=== PATIENT | female | born 1995 | race Caucasian/White ===

== ENCOUNTER 2016-08-14 23:32 | Observation (INO) | payer OTHER ==
[~2016-08-14] VITALS: Ht 170.2 cm; Wt 63.6 kg
[~2016-08-14 23:32] MED LIST: ACET325T9 PO; ALBU6.7H IH; ALBU8.5H8 INH; BUDE0.5A3 IH; IBUP400T18 PO; LEVO20CA PO; MELO7.5T5 PO; NAPR220T70 PO; OXYC-323 PO; TIZA2CAP3 PO; TRAM50TA PO
[2016-08-14] MEDS ORDERED: IV NORMAL SALINE 1,000ML 1,000 ML IV SCH (23:56)
[2016-08-15] MEDS ORDERED: LORazepam 2 MG/ML VIAL IV ONE
[2016-08-15] MEDS ORDERED: 0.9 % SODIUM CHLORIDE 10 ML DISP.SYRIN. IV PRN
[2016-08-15 00:29] LABS: BASO % 0 % (0-3); EOS # 0.2 x10^3/uL (0.0-0.7); EOS % 3 % (0-3); HEMOGLOBIN 11.1 g/dL (12.0-15.5); LYMPH # 3.6 x10^3/uL (1.0-4.8); LYMPH % 42 % (24-48); MEAN CORPUSCULAR HEMOGLOBIN 26 pg (25-35); MEAN CORPUSCULAR HGB CONC 33 g/dL (31-37); MEAN CORPUSCULAR VOLUME 78 fL (79-100); MONO # 0.8 x10^3/uL (0.0-1.1); MONO % 9 % (0-9); NEUT % 46 % (31-73); PLATELET COUNT 200 x10^3/uL (140-400); RED BLOOD COUNT 4.33 x10^6/uL (3.50-5.40); RED CELL DISTRIBUTION WIDTH 18.3 % (11.5-14.5); WHITE BLOOD COUNT 8.6 x10^3/uL (4.0-11.0)
[2016-08-15 00:38] LABS: ALBUMIN 3.9 g/dL (3.4-5.0); CREATININE 0.7 mg/dL (0.6-1.0); DIRECT BILIRUBIN 0.2 mg/dL (0.0-0.2); GFR 103.7; MAGNESIUM 2.2 mg/dL (1.8-2.4); POTASSIUM 3.2 mmol/L (3.5-5.1); TOTAL BILIRUBIN 0.9 mg/dL (0.2-1.0); TOTAL PROTEIN 7.4 g/dL (6.4-8.2)
[2016-08-15 00:39] LABS: ACETAMIN < 2.0 mcg/mL (10-30); ETHANOL < 10 mg/dL (0-10)
[2016-08-15 00:40] LABS: SALIC < 0.2 mg/dL (2.8-20.0)
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
[2016-08-15 01:00] LABS: PREG TEST PT QUAL NEGATIVE (NEG)
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
[2016-08-15 01:58] LABS: BILIRUBIN,URINE NEG (NEG); CLARITY,URINE HAZY; COLOR,URINE YELLOW; GLUCOSE,URINE NEG (NEG)
[2016-08-15 01:59] LABS: BACTERIA,URINE FEW /HPF (0-FEW); BARBITURATES NEG (NEG); BENZODIAZEPINES NEG (NEG); CANNABINOIDS POS (NEG); COCAINE NEG (NEG); METHADONE NEG (NEG); NITRITE,URINE NEG (NEG); OPIATES NEG (NEG); PHENCYCLIDINE NEG (NEG); RBC,URINE >40 /HPF (0-2); UROBILINOGEN,URINE 0.2 mg/dL (0.2 mg/dL); WBC,URINE OCC /HPF (0-4)
[2016-08-15 02:00] LABS: SQUAMOUS EPITHELIAL CELL,UR FEW /LPF
[2016-08-15 02:01] LABS: AMPHETAMINE/METHAMPHETAMINE POS (NEG)
[2016-08-15] MEDS ORDERED: LORazepam 2 MG/ML VIAL IV PRN (02:30)
[2016-08-15 02:41] VITALS: BP 116/71
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
--- NOTE | 2016-08-15 06:28 | NUR ---
Dr. Mejia paged and returned page. Aware of consult.
--- NOTE | 2016-08-15 06:52 | RAD ---
Indication: Injury with shoulder and chest pain. Time of exam 0116 hours. Comparison is made with prior exam from 01/27/2015. The heart size is normal. The lungs are clear. No infiltrate, effusion or pneumothorax is detected. Impression: No acute cardiopulmonary process is detected.
[2016-08-15] MEDS ORDERED: POTASSIUM CHLORIDE 20 MEQ TABLET.ER. PO ONE (08:00)
[2016-08-15 09:23] VITALS: BP 116/77
[2016-08-15] MEDS: MVI, ADULT NO.4 WITH VIT K 10 ML, FOLIC ACID 1 MG, THIAMINE 100 MG in IV DEXTROSE 5 %-0... IV SCH ×4 (09:28)
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
[2016-08-15 14:56] VITALS: BP 115/70
[2016-08-15] MEDS ORDERED: KETOROLAC 15 MG/ML VIAL. IV PRN (17:15)
--- NOTE | 2016-08-15 18:00 | NUR ---
IV: Banana Bag/Multivitamin IV stopped on 08/15/16 at 1800
--- NOTE | 2016-08-15 18:04 | NUR ---
Nursing: Patient drowsy throughout the morning. Patient was oriented to self only. Patient woke up for lunch and then went back to bed. Approximately 1500 patient woke up and has been watching TV and talking on the phone. Patient's grandparents visited. Patient and visitors were raising voices and patient asked visitors to leave. Patient then explained that her grandma wants to talk about the problems but does not understand. Patient does not want anyone to receive any medical information unless it comes from her. Patient is interested in following up with [facility]. Patient currently alert and oriented. Ate 100% of dinner. Call light within reach. Will continue to monitor.
[2016-08-15 19:26] VITALS: BP 135/77
--- NOTE | 2016-08-15 22:46 | NUR ---
Patient assessed, continue to monitor.
[2016-08-16 06:08] VITALS: BP 128/77
[2016-08-16] MEDS ORDERED: POTASSIUM CHLORIDE 20 MEQ TABLET.ER. PO ONE (07:45)
[2016-08-16] MEDS: MVI, ADULT NO.4 WITH VIT K 10 ML, FOLIC ACID 1 MG, THIAMINE 100 MG in IV DEXTROSE 5 %-0... IV SCH ×4 (08:18)
--- NOTE | 2016-08-16 08:38 | NUR ---
PT is sleeping this am. PT does not want to eat breakfast at this time. Josh HOLGUIN
[2016-08-16 10:30] VITALS: BP 140/80
[2016-08-16] MEDS ORDERED: DOCUSATE SODIUM 100 MG CAPSULE PO ONE (11:00)
--- NOTE | 2016-08-16 11:03 | NUR ---
PT dc to home. PT is able to verbalize understanding of discharge instructions. PT given Rx for atarax per request. Pt left amb via private vehicle. Josh HOLGUIN
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
== END 2016-08-16 11:06 | disposition home or self-care (01) ==
LOC: ER 23:48 → EEVIPCON 08-15 02:10 → INTOOBSV 08-15 02:10 → ICU 08-15 02:10
PROVIDERS: ADMIT Family Medicine; ATTEND Family Medicine
DX: R53.1 Weakness (principal); M54.2 Cervicalgia; F19.239 Other psychoactive substance dependence with withdrawal, unspecified; F31.9 Bipolar disorder, unspecified; F41.9 Anxiety disorder, unspecified; F22 Delusional disorders; F15.90 Other stimulant use, unspecified, uncomplicated; Y04.0XXA Assault by unarmed brawl or fight, initial encounter
CPT/HCPCS: 36415; 70450; 71020; 80048; 80076; 81001; 83735; 84703; 85027; 87641; 96361; 96365; 96366; 96375; 96376; 99285; G0378; G0480; G0481; G6038; J1885; J2060; G0379; 80196; J7030

== ENCOUNTER 2017-01-29 23:54 | Inpatient (IN) | payer OTHER ==
[~2017-01-29] VITALS: Ht 172.7 cm; Wt 62.8 kg
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
[2017-01-30] MEDS ORDERED: IV NORMAL SALINE 1,000ML 1,000 ML IV SCH
[2017-01-30 01:00] LABS: BASO % 1 % (0-3); EOS # 0.1 x10^3/uL (0.0-0.7); EOS % 2 % (0-3); HEMATOCRIT 34.7 % (36.0-47.0); HEMOGLOBIN 11.4 g/dL (12.0-15.5); LYMPH # 2.4 x10^3/uL (1.0-4.8); LYMPH % 32 % (24-48); MEAN CORPUSCULAR HEMOGLOBIN 27 pg (25-35); MEAN CORPUSCULAR HGB CONC 33 g/dL (31-37); MEAN CORPUSCULAR VOLUME 81 fL (79-100); MONO # 0.7 x10^3/uL (0.0-1.1); MONO % 9 % (0-9); NEUT # 4.2 x10^3uL (1.8-7.7); NEUT % 56 % (31-73); PLATELET COUNT 233 x10^3/uL (140-400); RED BLOOD COUNT 4.27 x10^6/uL (3.50-5.40); WHITE BLOOD COUNT 7.5 x10^3/uL (4.0-11.0)
[2017-01-30 01:07] LABS: ALBUMIN 3.5 g/dL (3.4-5.0); CALCIUM 8.6 mg/dL (8.5-10.1); CREATININE 0.7 mg/dL (0.6-1.0); DIRECT BILIRUBIN 0.1 mg/dL (0.0-0.2); GFR 103.7; POTASSIUM 3.3 mmol/L (3.5-5.1); TOTAL BILIRUBIN 0.5 mg/dL (0.2-1.0); TOTAL PROTEIN 6.8 g/dL (6.4-8.2)
[2017-01-30 01:08] LABS: ETHANOL < 10 mg/dL (0-10)
[2017-01-30 01:09] LABS: ACETAMIN < 2.0 mcg/mL (10-30)
[2017-01-30 01:12] LABS: BACTERIA,URINE FEW /HPF (0-FEW); BILIRUBIN,URINE NEG (NEG); CLARITY,URINE CLEAR; COLOR,URINE YELLOW; GLUCOSE,URINE NEG (NEG); NITRITE,URINE NEG (NEG); RBC,URINE OCC /HPF (0-2); SQUAMOUS EPITHELIAL CELL,UR OCC /LPF; UROBILINOGEN,URINE 0.2 mg/dL (0.2 mg/dL)
[2017-01-30 01:13] LABS: PREG TEST PT QUAL NEGATIVE (NEG)
[2017-01-30 01:28] LABS: BARBITURATES NEG (NEG); BENZODIAZEPINES NEG (NEG); CANNABINOIDS POS (NEG); COCAINE NEG (NEG); METHADONE NEG (NEG); OPIATES NEG (NEG); PHENCYCLIDINE NEG (NEG)
[2017-01-30 01:30] LABS: AMPHETAMINE/METHAMPHETAMINE NEG (NEG)
[2017-01-30] MEDS ORDERED: KETOROLAC 30 MG/ML VIAL. IV ONE (03:15)
[2017-01-30] MEDS ORDERED: LORazepam 2 MG/ML VIAL IV ONE (03:30)
[2017-01-30] MEDS ORDERED: POTASSIUM CHLORIDE 10 MEQ TABLET.ER. PO ONE (03:30)
[2017-01-30] MEDS ORDERED: MVI, ADULT NO.4 WITH VIT K 10 ML, FOLIC ACID SYRINGE for ER 1 MG, THIAMINE 100 MG in IV... IV ONE ×4 (03:30)
[2017-01-30] MEDS ORDERED: ORPHENADRINE CITRATE 60 MG/2 ML VIAL. IV ONE (03:30)
[2017-01-30] MEDS ORDERED: FOLIC ACID 5 MG/ML SYRINGE for ER IV ONE (03:36)
[2017-01-30] MEDS ORDERED: THIAMINE 200 MG/2 ML VIAL. IV ONE (03:36)
[2017-01-30] MEDS ORDERED: MVI, ADULT NO.4 WITH VIT K 10 ML VIAL IV ONE (03:36)
--- NOTE | 2017-01-30 06:02 | EKG ---
[address] [address] Test Date: 2017-01-30 Test Time: 00:42:43 Pat Name: ISHA RUBIO Department: Room: Gender: F Change Management Lead: JOHANA : 1995 Requested By: BRIAN SANCHEZ Order Number: [id number] Reading MD: Jesus Olson Measurements Intervals [place] Rate: 61 P: 56 IL: 150 QRS: 64 QRSD: 84 T: 51 QT: 414 QTc: 422 Interpretive Statements SINUS RHYTHM Electronically Signed On 02-08-2017 8:12:09 CDT by Jesus Olson
[2017-01-30] MEDS ORDERED: ZIPRASIDONE 20 MG CAPSULE. PO SCH ×2 (17:00→19:00)
[2017-01-30] MEDS ORDERED: OLANZapine 2.5 MG TABLET PO ONE (18:00)
[2017-01-30] MEDS ORDERED: LORazepam 1 MG TABLET PO ONE ×2 (18:00→19:00)
[2017-01-30] MEDS ORDERED: diphenhydrAMINE 50 MG/ML VIAL IVP ONE (19:00)
[2017-01-30] MEDS ORDERED: LORazepam 2 MG/ML VIAL ONE (19:08)
[2017-01-30] MEDS ORDERED: ZIPRASIDONE IM 20 MG VIAL. IM ONE (19:08)
[2017-01-30] MEDS: ZIPRASIDONE IM 20 MG VIAL. IM ONE ×2 (19:27→19:30)
[2017-01-30] MEDS ORDERED: LORazepam 1 MG TABLET PO PRN (20:30)
[2017-01-30] MEDS ORDERED: ZIPRASIDONE IM 20 MG VIAL. IM PRN (20:30)
[2017-01-30] MEDS ORDERED: diphenhydrAMINE HCL 25 MG CAPSULE PO ONE (20:30)
[2017-01-30] MEDS ORDERED: diphenhydrAMINE HCL 25 MG CAPSULE PO PRN (20:30)
[2017-01-30 21:00] VITALS: BP 112/69
[2017-01-30] MEDS ORDERED: MVI, ADULT NO.4 WITH VIT K 10 ML, FOLIC ACID 1 MG, THIAMINE 100 MG in IV DEXTROSE 5%-LA... IV SCH ×4 (21:00)
[2017-01-30] MEDS: ZIPRASIDONE 40 MG CAPSULE. PO SCH (21:00)
[2017-01-31 05:01] VITALS: BP 103/71
[2017-01-31 06:27] LABS: BASO % 0 % (0-3); EOS # 0.1 x10^3/uL (0.0-0.7); EOS % 1 % (0-3); HEMATOCRIT 31.1 % (36.0-47.0); HEMOGLOBIN 10.2 g/dL (12.0-15.5); LYMPH # 2.3 x10^3/uL (1.0-4.8); LYMPH % 22 % (24-48); MEAN CORPUSCULAR HEMOGLOBIN 27 pg (25-35); MEAN CORPUSCULAR HGB CONC 33 g/dL (31-37); MEAN CORPUSCULAR VOLUME 81 fL (79-100); MONO # 0.8 x10^3/uL (0.0-1.1); MONO % 8 % (0-9); NEUT # 6.9 x10^3uL (1.8-7.7); NEUT % 69 % (31-73); PLATELET COUNT 187 x10^3/uL (140-400); RED BLOOD COUNT 3.82 x10^6/uL (3.50-5.40); RED CELL DISTRIBUTION WIDTH 18.2 % (11.5-14.5); WHITE BLOOD COUNT 10.1 x10^3/uL (4.0-11.0)
[2017-01-31 06:41] LABS: ALBUMIN 2.7 g/dL (3.4-5.0); CALCIUM 8.3 mg/dL (8.5-10.1); CREATININE 0.6 mg/dL (0.6-1.0); GFR 123.9; POTASSIUM 3.5 mmol/L (3.5-5.1); TOTAL BILIRUBIN 0.6 mg/dL (0.2-1.0); TOTAL PROTEIN 5.5 g/dL (6.4-8.2)
[2017-01-31] MEDS: ZIPRASIDONE 40 MG CAPSULE. PO SCH ×2 (09:00→21:00)
[2017-01-31 10:26] VITALS: BP 105/61
[2017-01-31 14:17] VITALS: BP 122/79
[2017-01-31] MEDS: NICOTINE 21MG PATCH. TD SCH ×2 (17:07→17:13)
[2017-01-31] MEDS: ACETAMINOPHEN 500 MG TABLET PO PRN ×2 (17:07→22:31)
[2017-01-31 19:17] VITALS: BP 125/88
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
[2017-01-31] MEDS ORDERED: POLYETHYLENE GLYCOL 3350 17 GM PACKET. PO PRN (20:15)
[2017-01-31] MEDS: DOCUSATE SODIUM 100 MG CAPSULE PO PRN (21:00)
[2017-01-31] MEDS ORDERED: MVI, ADULT NO.4 WITH VIT K 10 ML, FOLIC ACID 1 MG, THIAMINE 100 MG in IV DEXTROSE 5%-LA... IV SCH ×4 (21:00)
[2017-02-01] MEDS: NICOTINE 21MG PATCH. TD SCH (09:00)
[2017-02-01] MEDS: ZIPRASIDONE 40 MG CAPSULE. PO SCH (10:18)
[2017-02-01] MEDS: DOCUSATE SODIUM 100 MG CAPSULE PO PRN (10:19)
--- NOTE | 2017-02-01 20:08 | DS ---
DATE OF DISCHARGE: 02/01/2017 HOSPITAL COURSE: The patient is a 21-year-old female patient, who presented to the Emergency Room with mental status change. She denied any drug use of several days, denied trauma. The patient denies taking any Tylenol or aspirin. She did admit to depression and suicidal ideation that are constant, but stated that she will not act upon them. The patient has been in [facility]. Paramedics state she appears to have been using drugs. The patient does state that she needs rehabilitation. She is known to have history of bipolar, polysubstance abuse, and behavioral disorder. She apparently was evaluated in the Emergency Room and [facility] was [facility]. They planned placement for further evaluation and treatment. She does stay in the Emergency Room for more than 12 hours and then she was admitted to [address] [place] [address]. Apparently, she was given Ativan and Geodon as she was extremely agitated in the Emergency Room. She was also agitated last night; however, she was accepted at [place] inpatient psychiatric stabilization and was discharged there after I spoke with the psychiatrist there confirming that she is medically stable. Prior to the discharge, she looked well and was clearly in no apparent respiratory distress, slightly pale; not jaundiced, cyanosis, or thyromegaly. No jugular venous distension. No lower limb edema. Her heart rate was 81, blood pressure was 125/88, temperature was 97.9, respiratory rate was 15 and oxygen saturation was 98%. The rest of clinical examination is unremarkable and has not really changed. Her lab work showed a white cell count of 10,100; hemoglobin 10, hematocrit 31, MCV 81 and platelet count of 187,000. Her chemistry showed a serum sodium 145, potassium 3.5, chloride 112, bicarbonate 28, anion gap of 5, BUN 8, creatinine was 0.6, estimated GFR was 124 mL per minute. Her glucose was 93, calcium was 8.3. Total bilirubin and alkaline phosphatase were normal. AST, ALT slightly elevated. Her total protein was 5.5, albumin was 2.7. Her white cell count was 10,400; hemoglobin ____, hematocrit 25. Urinalysis was unremarkable and tox screen was positive for cannabinoids, but negative for all other medications. She was discharged to [place]. She was discharged to continue on: 1. Colace 100 mg once a day. 2. Nicotine 21 mg patch topically once a day. 3. Tylenol 500 mg every 6 hours. 4. Geodon 40 mg p.o. b.i.d. 5. Lorazepam 2 mg p.o. q.i.d. 6. Diphenhydramine 25 mg 4 times a day. 7. Ziprasidone 20 mg intramuscular twice a day. FINAL DISCHARGE DIAGNOSES: 1. Mental status change. 2. Bipolar disorder. 3. Polysubstance abuse. 4. Possible schizoaffective schizophrenic behavior. 5. Anemia. 6. Mild hypokalemia, resolved. 7. Mild dehydration, resolved. ALEC MILES MD DR: WILBERTO/ananya JOB#: [id number] / [id number]
== END 2017-02-01 10:50 | DRG 92 ==
LOC: ER 23:54 → 1 SOUTH 01-30 20:50
PROVIDERS: ADMIT Internal Medicine; ATTEND Internal Medicine
DX: G92 Toxic encephalopathy (principal); E46 Unspecified protein-calorie malnutrition; R45.851 Suicidal ideations; F20.9 Schizophrenia, unspecified; F31.30 Bipolar disorder, current episode depressed, mild or moderate severity, unspecified; E86.0 Dehydration; D64.9 Anemia, unspecified; E87.6 Hypokalemia; F12.10 Cannabis abuse, uncomplicated; F17.210 Nicotine dependence, cigarettes, uncomplicated; F41.9 Anxiety disorder, unspecified; F91.9 Conduct disorder, unspecified; F19.10 Other psychoactive substance abuse, uncomplicated; M54.5 Low back pain; F15.90 Other stimulant use, unspecified, uncomplicated; Z90.49 Acquired absence of other specified parts of digestive tract; Z81.8 Family history of other mental and behavioral disorders; Z98.51 Tubal ligation status; Z88.0 Allergy status to penicillin; Z88.8 Allergy status to other drugs, medicaments and biological substances; Z68.21 Body mass index [BMI] 21.0-21.9, adult
CPT/HCPCS: 36415; 80048; 80053; 80076; 80307; 81001; 84703; 85025; 85610; 85730; 93005; 96361; 96372; 96374; 96375; G0480; J1200; J1885; J2060; J2360; J3486; J7120; 99285-25; G0479; J7030

== ENCOUNTER 2018-04-13 17:13 | Emergency (ER) | payer OTHER ==
[~2018-04-13] VITALS: Ht 172.7 cm; Wt 65.3 kg
[~2018-04-13 17:13] MED LIST changes: +ALBU2.5V8 IH; +ALBU2.5V8 INH; -ALBU6.7H IH; -ALBU8.5H8 INH; -OXYC-323 PO; +OXYC1TAB15 PO
[2018-04-13] MEDS ORDERED: IV NORMAL SALINE 1,000ML 1,000 ML IV ONE (17:30)
[2018-04-13] MEDS ORDERED: ONDANSETRON PF 4 MG/2 ML VIAL. IV ONE (17:45)
[2018-04-13] MEDS ORDERED: FAMOTIDINE 20 MG/2 ML VIAL IVP ONE (17:45)
[2018-04-13] MEDS ORDERED: KETOROLAC 15 MG/ML VIAL. IV ONE (17:45)
--- NOTE | 2018-04-13 17:52 | PHYS DOC ---
Past History Past Medical History: Anxiety, Bipolar, Depression, Schizophrenia, Other Past Surgical History: Tonsillectomy, Tubal ligation Smoking: Cigarettes Alcohol Use: Occasionally Drug Use: Amphetamine, Heroin, Marijuana, Methamphetamine Adult General Chief Complaint Chief Complaint: SUBSTANCE ABUSE HPI HPI Patient is a 22 year old female with history of chronic heroin abuse who presents with acute constipation and N/V. She reports having symptoms started 2 days ago since she stopped taking heroin. Pt reports diffuse abdominal pain and she has not been able to keep food down. She has tried OTC laxative, including Magnesium citrate and suppository which do not relieve her constipation. Associated symptoms include dizziness, lethargic, teary eyes. Review of Systems Review of Systems Constitutional: Denies fever or chills [] Eyes: Denies change in visual acuity, redness, or eye pain [] HENT: Denies nasal congestion or sore throat [] Respiratory: Denies cough or shortness of breath [] Cardiovascular: Endorses some palpitation. Denies chest pain. GI: Denies abdominal pain, nausea, vomiting, bloody stools or diarrhea [] : Denies dysuria or hematuria [] Musculoskeletal: Denies back pain or joint pain [] Integument: Denies rash or skin lesions [] Neurologic: Denies headache, focal weakness or sensory changes [] Complete systems were reviewed and found to be within normal limits, except as documented in this note. Current Medications Current Medications Current Medications Medications (Trade) Dose Ordered Sig/Jimmy Start Time Stop Time Status Last Admin Dose Admin Famotidine (Pepcid Vial) 20 mg 1X ONCE 04/13/18 17:45 04/13/18 17:46 UNV Ketorolac Tromethamine (Toradol 15mg Vial) 15 mg 1X ONCE 04/13/18 17:45 04/13/18 17:46 UNV Methylnaltrexone [place] (Relistor) 12 mg 1X ONCE 04/13/18 17:30 04/13/18 17:31 UNV Ondansetron HCl (Zofran) 4 mg 1X ONCE 04/13/18 17:45 04/13/18 17:46 UNV Sodium Chloride 1,000 ml @ 1,000 mls/hr 1X ONCE 04/13/18 17:30 04/13/18 18:29 Allergies Allergies Allergies Coded Allergies Type Severity Reaction Last Updated Verified Penicillins Allergy Severe Swelling/ stop breathing 07/12/13 Yes nitrofurantoin Allergy Intermediate Rash 01/27/15 Yes Physical Exam Physical Exam Constitutional: Well developed, well nourished, no acute distress, non-toxic appearance. [] HENT: Normocephalic, atraumatic, bilateral TMs normal, oropharynx moist, nose normal. [] Eyes: PERRL, EOMI, conjunctiva normal, no discharge. [] Neck: Normal range of motion, no tenderness, supple, no stridor. [] Cardiovascular:Heart rate regular rhythm, no murmur [] Lungs & Thorax: Bilateral breath sounds clear to auscultation [] Abdomen: Distended, diffused tenderness [] Skin: Warm, dry, no erythema, no rash. [] Extremities: No tenderness, ROM intact, no edema. [] Neurologic: Alert and oriented X 3, normal motor function, normal sensory function, no focal deficits noted. [] Current Patient Data Vital Signs Vital Signs Date Time Temp Pulse Resp B/P (MAP) Pulse Ox O2 Delivery O2 Flow Rate FiO2 04/13/18 17:25 98.2 98 16 100 Room Air EKG EKG At 04/13/2018 - 17:26:04 - Sinus rhythm with [address] elevation. [] Radiology/Procedures Radiology/Procedures [] Course & Med Decision Making Course & Med Decision Making Pertinent Labs and Imaging studies reviewed. (See chart for details) Patient with history of chronic heroin and methamphetamine abuse presents with reports of abdominal pain and distention. Hx of constipation. Labs obtained and pending. Symptomatic treatment provided. AAS with signs of constipation- awaiting radiologist review. Sign out given to Dr. Ayers for further evaluation and final disposition. Discussed current findings and plan with patient and family, who acknowledge understanding and agreement. After Fleet enema patient had a large bowel movement in ER. she felt so much better slept. Diagnoses Constipation UTI Dragon Disclaimer Dragon Disclaimer This electronic medical record was generated, in whole or in part, using a voice recognition dictation system. Departure Departure: Impression: Primary Impression: Constipation Additional Impression: Polysubstance abuse Referrals: PCP,NO (PCP) Scripts Peg 3350/Na Sulf,Bicarb,Cl/Kcl (GOLYTELY SOLUTION) 4,000 Ml Soln.recon 4000 ML PO Q1HR for constipation for 1 Day, MISC Prov: SUDHA AYERS MD 04/13/18 Sulfamethoxazole/Trimethoprim (BACTRIM DS TABLET) 1 Each Tablet 1 TAB PO BID for uti, #20 TAB Prov: SUDHA AYERS MD 04/13/18 Problem Qualifiers Primary Impression: Constipation Constipation type: unspecified constipation type Qualified Codes: K59.00 - Constipation, unspecified SURYA BATES DO Apr 13, 2018 17:52 SUDHA AYERS MD Apr 13, 2018 20:58
[2018-04-13] MEDS ORDERED: METHYLNALTREXONE 12 MG/0.6 ML VIAL. SQ ONE (18:00)
[2018-04-13 18:13] LABS: BASO # 0.1 x10^3/uL (0.0-0.2); BASO % 1 % (0-3); EOS # 0.1 x10^3/uL (0.0-0.7); EOS % 1 % (0-3); HEMATOCRIT 36.9 % (36.0-47.0); HEMOGLOBIN 11.6 g/dL (12.0-15.5); LYMPH # 1.2 x10^3/uL (1.0-4.8); LYMPH % 12 % (24-48); MEAN CORPUSCULAR HEMOGLOBIN 23 pg (25-35); MEAN CORPUSCULAR HGB CONC 31 g/dL (31-37); MEAN CORPUSCULAR VOLUME 72 fL (79-100); MONO % 10 % (0-9); NEUT # 7.5 x10^3uL (1.8-7.7); NEUT % 77 % (31-73); PLATELET COUNT 308 x10^3/uL (140-400); RED CELL DISTRIBUTION WIDTH 19.3 % (11.5-14.5); WHITE BLOOD COUNT 9.8 x10^3/uL (4.0-11.0)
[2018-04-13 18:30] LABS: ALBUMIN 3.2 g/dL (3.4-5.0); ALBUMIN/GLOBULIN RATIO 0.6 (1.0-1.7); CALCIUM 9.5 mg/dL (8.5-10.1); CREATININE 0.5 mg/dL (0.6-1.0); GFR 151.6; MAGNESIUM 2.1 mg/dL (1.8-2.4); POTASSIUM 4.3 mmol/L (3.5-5.1); TOTAL BILIRUBIN 0.7 mg/dL (0.2-1.0); TOTAL PROTEIN 8.3 g/dL (6.4-8.2)
[2018-04-13 18:31] LABS: ACETAMIN < 2.0 mcg/mL (10-30); ETHANOL < 10 mg/dL (0-10); SALIC 0.9 mg/dL (2.8-20.0)
[2018-04-13 18:36] LABS: PLT ESTIMATE ADEQUATE (ADEQUATE)
[2018-04-13 18:37] LABS: ANISOCYTOSIS SLIGHT; HYPOCHROMIA MOD; MICROCYTOSIS MOD
[2018-04-13 18:38] LABS: OVALOCYTES FEW; POIKILOCYTOSIS SLIGHT
[2018-04-13] MEDS ORDERED: SODIUM PHOSPHATES 19/7GM 133 ML ENEMA. PR ONE (18:45)
[2018-04-13 20:38] VITALS: BP 100/74
[2018-04-13 20:39] LABS: AMPHETAMINE/METHAMPHETAMINE NEG (NEG); BARBITURATES NEG (NEG); BENZODIAZEPINES NEG (NEG); CANNABINOIDS NEG (NEG); COCAINE NEG (NEG); METHADONE NEG (NEG); OPIATES POS (NEG); PHENCYCLIDINE NEG (NEG)
[2018-04-13 20:42] LABS: BACTERIA,URINE MANY /HPF (0-FEW); BILIRUBIN,URINE NEG (NEG); CLARITY,URINE HAZY; COLOR,URINE YELLOW; GLUCOSE,URINE NEG (NEG); NITRITE,URINE NEG (NEG); RBC,URINE OCC /HPF (0-2); UROBILINOGEN,URINE 0.2 mg/dL (0.2 mg/dL); WBC,URINE 20-40 /HPF (0-4)
[2018-04-13 20:43] LABS: SQUAMOUS EPITHELIAL CELL,UR MOD /LPF
[2018-04-13] MEDS ORDERED: SULF1TAB24 PO (20:56)
[2018-04-13] MEDS ORDERED: PEG4000S8 PO (20:56)
--- NOTE | 2018-04-13 22:53 | RAD ---
ACUTE ABDOMEN SERIES History: Constipation, no bowel movement x2 weeks. Dark-colored vomit. Comparison: Two-view chest August 15, 2016. Findings: Frontal chest and supine and upright views of the abdomen. Cardiomediastinal silhouette is normal. There is no pleural effusion or pneumothorax. The lungs are clear. No pneumoperitoneum is identified. No dilated small bowel.. Rectum is distended with stool. Moderate colon stool volume. Bowel gas pattern is nonobstructive. No obvious organomegaly. Bones unremarkable. IMPRESSION: 1. No acute cardiopulmonary process. 2. Nonobstructive bowel gas pattern. 3. Moderate colon stool volume suggests constipation. Electronically signed by: Alejandro Angulo MD (04/13/2018 10:49 PM) [facility]
--- NOTE | 2018-04-15 18:27 | EKG ---
[address] [address] Test Date: 2018-04-13 Test Time: 17:26:04 Pat Name: ISHA RUBIO Department: Room: Gender: F [employer] Lead: VINAYAK : 1995 Requested By: SURYA BATES Order Number: [id number] Reading MD: Measurements Intervals [place] Rate: 96 P: 64 MN: 138 QRS: 48 QRSD: 80 T: 26 QT: 340 QTc: 436 Interpretive Statements SINUS RHYTHM OTHERWISE NORMAL ECG RI6.01 Unconfirmed report No previous ECG available for comparison
== END 2018-04-13 21:29 | disposition home or self-care (01) ==
LOC: ER 17:13
DX: K59.00 Constipation, unspecified (principal); N39.0 Urinary tract infection, site not specified; R42 Dizziness and giddiness; F19.10 Other psychoactive substance abuse, uncomplicated; F11.10 Opioid abuse, uncomplicated; F15.10 Other stimulant abuse, uncomplicated; F12.10 Cannabis abuse, uncomplicated; F41.9 Anxiety disorder, unspecified; F31.9 Bipolar disorder, unspecified; F20.9 Schizophrenia, unspecified; F17.210 Nicotine dependence, cigarettes, uncomplicated; Z88.0 Allergy status to penicillin; Z88.8 Allergy status to other drugs, medicaments and biological substances
CPT/HCPCS: 36415; 74022; 80053; 80307; 81001; 81025; 83735; 85025; 87086; 93005; 96374; 96375; 99284; G0480; G6039; J1885; J2405; J3490; 82003

== ENCOUNTER 2019-10-27 20:03 | Emergency (ER) | payer OTHER ==
[~2019-10-27] VITALS: Ht 172.7 cm; Wt 65.6 kg
[2019-10-27 20:03] VITALS: BP 119/69
[~2019-10-27 20:03] MED LIST changes: +PEG4000S8 PO; +SULF1TAB24 PO
[2019-10-27] MEDS ORDERED: LIDOCAINE/EPI/TETRACAINE TOPICAL GEL 3 ML. TP ONE (21:30)
[2019-10-27] MEDS ORDERED: IV NORMAL SALINE 1,000ML 1,000 ML IV ONE (21:30)
[2019-10-27] MEDS ORDERED: LIDOCAINE 2% 20 ML VIAL. IJ ONE (22:00)
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
[2019-10-27] MEDS ORDERED: BACITRACIN ZINC TOPICAL OINT PACKET. TP ONE (23:39)
[2019-10-28] MEDS ORDERED: BACITRACIN ZINC TOPICAL OINT PACKET. TP ONE (07:30)
[2019-10-28] MEDS ORDERED: LIDOCAINE 2% 20 ML VIAL. IJ ONE (07:30)
== END 2019-10-27 23:57 | disposition home or self-care (01) ==
LOC: EEVIPCON 20:03 → ER 20:03
DX: S61.213A Laceration without foreign body of left middle finger without damage to nail, initial encounter (principal); F20.9 Schizophrenia, unspecified; F17.210 Nicotine dependence, cigarettes, uncomplicated; Z88.0 Allergy status to penicillin; Z88.8 Allergy status to other drugs, medicaments and biological substances; X99.1XXA Assault by knife, initial encounter; Y93.89 Activity, other specified; Y92.89 Other specified places as the place of occurrence of the external cause; Y99.8 Other external cause status
CPT/HCPCS: 12002; 99283; J2001; J7030

== ENCOUNTER 2021-08-12 13:14 | Emergency (ER) | payer OTHER ==
[~2021-08-12] VITALS: Ht 172.7 cm; Wt 65.6 kg
[2021-08-12] MEDS ORDERED: IV NORMAL SALINE 1,000ML 1,000 ML IV ONE (13:30)
[2021-08-12] MEDS ORDERED: FAMOTIDINE 20 MG/2 ML VIAL IVP ONE (14:00)
[2021-08-12] MEDS ORDERED: KETOROLAC 15 MG/ML VIAL. IVP ONE (14:00)
[2021-08-12] MEDS ORDERED: ONDANSETRON PF 4 MG/2 ML VIAL. IVP ONE (14:00)
--- NOTE | 2021-08-12 14:13 | PHYS DOC ---
Past History Past Medical History: Anxiety, Bipolar, Depression, Schizophrenia, Other Additional Past Medical Histor: drug abuse Past Surgical History: Tonsillectomy, Tubal ligation Smoking: Cigarettes Alcohol Use: Occasionally Drug Use: Amphetamine, Heroin, Marijuana, Methamphetamine General Adult EDM: Chief Complaint: SHORTNESS OF BREATH HPI: HPI: Patient is a 26-year-old female with a H bipolar disorder unspecified, hypercholesterolemia presents with complaint of chest/abdominal pain primarily to right side. Patient reports relapsing with heroin and fentanyl starting last week and ending on 08/10/2021. Patient reports she is diaphoretic, has chills, nausea and severe midepigastric/ RUQ abdominal pain. Patient reports abdominal pain as a 6 out of 10 that radiates to her right shoulder and mid scapular region. Patient reports medicating with Tylenol however did not improve symptoms. Patient reports leaning forward/changes in position and smoking cigarettes makes pain worse. Reports last ate a "cheeseburger" approximately 30-60 min prior to arrival. Patient has a [facility] tonsillectomy as a child and bilateral tubal ligation in 2015. Patient has 1/2 pack/day x12 years smoking history. Patient denies alcohol consumption. Patient reports 5-year heroin/fentanyl drug usage however has been sober for the past 7 months prior to relapse. Patient denies caffeine usage. Review of Systems: Review of Systems: Constitutional: Denies fever. Reports chills Eyes: Denies redness or eye pain HENT: Reports nasal congestion. Denies sore throat Respiratory: Denies cough or shortness of breath Cardiovascular: Denies chest pain or palpitations GI: Reports significant midepigastric/RUQ abdominal pain and nausea, bloating. Denies vomiting : Denies dysuria or hematuria Musculoskeletal: Denies back pain or joint pain Integument: Denies rash or skin lesions Neurologic: Denies headache, focal weakness or sensory changes Complete systems were reviewed and found to be within normal limits, except as documented in this note. Current Medications: Current Meds: Current Medications Medications (Trade) Dose Ordered Sig/Jimmy Start Time Stop Time Status Last Admin Dose Admin Famotidine (Pepcid Vial) 20 mg 1X ONCE 08/12/21 14:00 08/12/21 14:01 Ketorolac Tromethamine (Toradol 15mg Vial) 15 mg 1X ONCE 08/12/21 14:00 08/12/21 14:01 Ondansetron HCl (Zofran) 4 mg 1X ONCE 08/12/21 14:00 08/12/21 14:01 Sodium Chloride 1,000 ml @ 1,000 mls/hr 1X ONCE 08/12/21 13:30 08/12/21 14:29 Allergies: Allergies: Allergies Coded Allergies Type Severity Reaction Last Updated Verified Penicillins Allergy Severe Swelling/ stop breathing 07/12/13 Yes nitrofurantoin Allergy Intermediate Rash 01/27/15 Yes Physical Exam: PE: Constitutional: Well developed, well nourished, no acute distress, non-toxic appearance HENT: Normocephalic, atraumatic Eyes: Conjunctiva normal, no discharge Neck: Normal range of motion, supple Lungs & Thorax: No respiratory distress, equal chest rise and fall Abdomen: Soft, significant midepigastric/RUQ tenderness to light and deep palpation, positive Ramos's sign, no rebound/guarding Skin: Warm, dry, no erythema, no rash Back: No tenderness, no CVA tenderness Extremities: No tenderness, ROM intact, no edema Neurologic: Alert and oriented X 3, normal motor function, normal sensory function, no focal deficits noted Psychologic: Affect normal, judgment normal Current Patient Data: Vital Signs: Vital Signs Date Time Temp Pulse Resp B/P (MAP) Pulse Ox O2 Delivery O2 Flow Rate FiO2 08/12/21 13:27 85 18 148/67 (94) 99 EKG: EKG: @1322 08/12/2021 normal sinus rhythm, no ST segment elevation, HR 79 bpm, IL 152 ms, QRS 78 ms, QT/QTc 376/432 ms. Radiology/Procedures: Radiology/Procedures: PROCEDURE: ABDOMEN OR LWR BACK LTD Right upper quadrant ultrasound dated 08/12/2021. COMPARISON: None. INDICATION: Pain. Possible cholecystitis. FINDINGS: Liver is somewhat heterogeneous and of mild increased echogenicity.. No focal hepatic mass. Biliary tree is normal caliber. CBD measures 2 mm. There is diffuse gallbladder wall thickening measuring up to 9 mm trace pericholecystic fluid. Positive Ramos's sign. No shadowing stones are identified. Right kidney measures 11.2 cm in length without hydronephrosis. Left kidney was not imaged. Limited visualized portions of pancreas aorta and IVC unremarkable. No significant ascites. IMPRESSION: 1. Diffuse gallbladder wall thickening with trace amount of pericholecystic fluid and positive Ramos's sign. Acute cholecystitis is not excluded. No significant cholelithiasis. 2. Mild increased echogenicity and heterogeneity of the liver, nonspecific. Consider fatty infiltration and/or diffuse hepatocellular disease. Electronically signed by: Elliot Rios MD (08/12/2021 3:02 PM) [facility] PROCEDURE: PORTABLE CHEST 1V Single view chest dated 08/12/2021 3:17 PM: COMPARISON: 08/15/2016 Clinical Indication: Shortness of breath. Findings: Single upright portable exam of the chest was performed. Heart size and mediastinal contours are within normal limits. Lungs are clear. No consolidation or pleural effusion. No pneumothorax. IMPRESSION: No acute radiographic abnormality. Electronically signed by: Elliot Rios MD (08/12/2021 3:18 PM) [facility] Heart Score: C/O Chest Pain: Yes HEART Score for Chest Pain: HEART Score for Chest Pain Response (Comments) Value History Slighlty/Non-Suspicious 0 ECG Normal 0 Age < 45 0 Risk Factors 1 or 2 Risk Factors 1 Troponin < Normal Limit 0 Total 1 Risk Factors: Risk Factors: DM, Current or recent (<one month) smoker, HTN, HLP, family history of CAD, obesity. Risk Scores: Score 0 - 3: 2.5% MACE over next 6 weeks - Discharge Home Score 4 - 6: 20.3% MACE over next 6 weeks - Admit for Clinical Observation Score 7 - 10: 72.7% MACE over next 6 weeks - Early Invasive Strategies Course & Med Decision Making: Course & Med Decision Making Pertinent Labs and Imaging studies reviewed. (See chart for details) Patient is a 26-year-old female with a PMH bipolar disorder unspecified, hypercholesterolemia presents with complain of chest/ RUQ abdominal pain. Pain on palpation to RUQ with positive Ramos's sign. EKG stable. Labs obtained and posted to chart. LFTs elevated. Lipase stable. WBC also WNL. Based on exam, concern for cholecystitis. US with signs of acute cholecystitis with gallbladder wall thickening and some pericholecystic fluid. No gallstones appreciated. Patient requiring transfer to facility with General Surgery capability for admission for further evaluation and treatment. Discussed case with Dr. Zuleta (General Surgery) who is in agreement with consultation. Dr. Zuleta requesting empiric antibiotics. Given patient's allergy to penicillin Cipro and Flagyl therefore provided. Discussed with Dr. Naranjo (hospitalist) who is in agreement with transfer to [facility] for admission. Discussed findings and plan with patient and family, who acknowledge understanding and agreement. Petra Disclaimer: Petra Disclaimer: This electronic medical record was generated, in whole or in part, using a voice recognition dictation system. Departure Departure: Impression: Primary Impression: Acute cholecystitis Additional Impression: Elevated LFTs Disposition: [address] [place] [address] ([facility]) Admitting Physician: Marianne Naranjo Condition: STABLE Referrals: PCPRYLEE (PCP) ELLIOT BATES DO August 12, 2021 14:12
[2021-08-12 14:59] LABS: ANION GAP 10 (6-14); BLOOD UREA NITROGEN 6 mg/dL (7-20); BUN/CREATININE RATIO 9 (6-20); CALCIUM 8.6 mg/dL (8.5-10.1); CARBON DIOXIDE 24 mmol/L (21-32); CHLORIDE 108 mmol/L (98-107); CREATININE 0.7 mg/dL (0.6-1.0); GFR 99.6; GLUCOSE 128 mg/dL (70-99); SODIUM 142 mmol/L (136-145)
[2021-08-12 15:04] LABS: BASO % 1 % (0-3); EOS # 0.1 x10^3/uL (0.0-0.7); EOS % 2 % (0-3); HEMATOCRIT 36.8 % (36.0-47.0); HEMOGLOBIN 11.3 g/dL (12.0-15.5); LYMPH # 2.8 x10^3/uL (1.0-4.8); LYMPH % 45 % (24-48); MEAN CORPUSCULAR HEMOGLOBIN 25 pg (25-35); MEAN CORPUSCULAR HGB CONC 31 g/dL (31-37); MEAN CORPUSCULAR VOLUME 80 fL (79-100); MONO # 0.5 x10^3/uL (0.0-1.1); MONO % 8 % (0-9); NEUT # 2.9 x10^3uL (1.8-7.7); NEUT % 45 % (31-73); PLATELET COUNT 154 x10^3/uL (140-400); RED BLOOD COUNT 4.62 x10^6/uL (3.50-5.40); RED CELL DISTRIBUTION WIDTH 16.7 % (11.5-14.5); WHITE BLOOD COUNT 6.3 x10^3/uL (4.0-11.0)
--- NOTE | 2021-08-12 15:04 | RAD ---
Right upper quadrant ultrasound dated 08/12/2021. COMPARISON: None. INDICATION: Pain. Possible cholecystitis. FINDINGS: Liver is somewhat heterogeneous and of mild increased echogenicity.. No focal hepatic mass. Biliary t ree is normal caliber. CBD measures 2 mm. There is diffuse gallbladder wall thickening measuring up to 9 mm trace pericholecystic fluid. Positi ve Ramos's sign. No shadowing stones are identified. Right kidney measures 11.2 cm in length without hydronephrosis. Left kidney was not imaged. Limited visualized portions of pancreas aorta and IVC unremarkable. No significant ascites. IMPRESSION: 1. Diffuse gallbladder wall thickening with trace amount of pericholecystic fluid and positive Ramos 's sign. Acute cholecystitis is not excluded. No significant cholelithiasis. 2. Mild increased echogenicity and heterogeneity of the liver, nonspecific. Consider fatty infiltrati on and/or diffuse hepatocellular disease. Electronically signed by: Elliot Rios MD (08/12/2021 3:02 PM) [facility]
[2021-08-12 15:16] LABS: ALBUMIN 2.7 g/dL (3.4-5.0); ALBUMIN/GLOBULIN RATIO 0.7 (1.0-1.7); ALK PHOS 720 U/L (46-116); ALT (SGPT) 952 U/L (14-59); AST (SGOT) 417 U/L (15-37); MAGNESIUM 2.2 mg/dL (1.8-2.4); TOTAL BILIRUBIN 0.8 mg/dL (0.2-1.0); TOTAL PROTEIN 6.8 g/dL (6.4-8.2)
--- NOTE | 2021-08-12 15:20 | RAD ---
Single view chest dated 08/12/2021 3:17 PM: COMPARISON: 08/15/2016 Clinical Indication: Shortness of breath. Findings: Single upright portable exam of the chest was performed. Heart size and mediastinal contours are with in normal limits. Lungs are clear. No consolidation or pleural effusion. No pneumothorax. IMPRESSION: No acute radiographic abnormality. Electronically signed by: Elliot Rios MD (08/12/2021 3:18 PM) [facility]
[2021-08-12 15:59] VITALS: BP 131/60
[2021-08-12] MEDS ORDERED: CIPROFLOXACIN 400MG PREMIX 200 ML IV ONE (16:30)
[2021-08-12 16:57] LABS: INFLUENZA A PATIENT NEGATIVE (NEGATIVE); INFLUENZA B PATIENT NEGATIVE (NEGATIVE)
--- NOTE | 2021-08-12 20:48 | EKG ---
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
== END 2021-08-12 17:01 | disposition short-term general hospital (02) ==
LOC: ER 13:14
DX: K81.0 Acute cholecystitis (principal); R79.89 Other specified abnormal findings of blood chemistry; F20.9 Schizophrenia, unspecified; F41.9 Anxiety disorder, unspecified; F31.9 Bipolar disorder, unspecified; F17.210 Nicotine dependence, cigarettes, uncomplicated; Z20.822 Contact with and (suspected) exposure to COVID-19; Z88.0 Allergy status to penicillin; Z88.8 Allergy status to other drugs, medicaments and biological substances
CPT/HCPCS: 36415; 71045; 76705; 80053; 82553; 83690; 83735; 83880; 84484; 85025; 87428; 93005; 96361; 96365; 96368; 96375; 99285; C9803; J0744; J1885; J2405; J3490; J7030; U0003